=== PATIENT | male | born 1975 | race Caucasian/White ===

== ENCOUNTER → 2016-04-30 | Outpatient (CLI) | payer OTHER ==
--- NOTE | 2016-04-30 13:13 | DIAGNOSTIC IMAGING REPORT ---
BONY ORBITS 3 VIEWS CLINICAL HISTORY: MRI clearance. FINDINGS: 3 views of the bony orbits are obtained. No prior studies are available for comparison at the time of dictation. There is no radiodense/metallic foreign body identified the region of the orbits. The bony orbits appear intact. The paranasal sinuses and mastoid air cells are clear as visualized. The imaged calvarium appears preserved. IMPRESSION: There is no radiodense/metallic foreign body identified in the region of the orbits. Electronically signed by: Reuben Caicedo M.D. 04/30/2016 1:11 PM Dictated Date/Time: 04/30/2016 1:11 PM
--- NOTE | 2016-04-30 14:07 | DIAGNOSTIC IMAGING REPORT ---
LEFT SHOULDER MRI HISTORY: Left SHOULDER PAIN/CYST TECHNIQUE: Multiplanar multisequence MRI of the left shoulder was performed without contrast. COMPARISON STUDY: None. FINDINGS: Mild motion artifact. AC joint: Intact Rotator cuff: No evidence for rotator cuff tear. No fluid within the subacromial/subdeltoid bursa. Labrum: Best seen on the coronal T2 sequences image 10 there is abnormal appearance to the labrum superiorly consistent with a SLAP tear. There is also a 2.8 x 1.7 x 1.4 cm cyst extending medially from the torn superior labrum. This majority of the cyst resides within the spinoglenoid notch. The finger like projection of the cyst extending to the torn superior labrum suggests a paralabral cyst rather than a separate ganglion cyst. Biceps: Intact Bones: No fracture or dislocation. Cartilage: Intact Miscellaneous: No joint effusion. No edema or atrophy within the rotator cuff muscles or deltoid. IMPRESSION: 1. SLAP tear. 2. A 2.8 x 1.7 x 1.4 cm cyst extending medially from the torn superior labrum. This majority of the cyst resides within the spinoglenoid notch. The finger like projection of the cyst extending to the torn superior labrum suggests a paralabral cyst rather than a separate ganglion cyst. Electronically signed by: Tate Muir M.D. 04/30/2016 2:06 PM Dictated Date/Time: 04/30/2016 1:58 PM
== END | disposition home or self-care (01) ==
LOC: C.MRIBC 12:54
PROVIDERS: ATTEND Orthopaedic Surgery
DX: S43.432A Superior glenoid labrum lesion of left shoulder, initial encounter (principal); M25.812 Other specified joint disorders, left shoulder; X58.XXXA Exposure to other specified factors, initial encounter